=== PATIENT | female | born 1975 | race African-American/Black ===

== ENCOUNTER → 2020-08-24 | Outpatient (CLI) | payer OTHER ==
[2020-08-24 16:05] LABS: BASO % 1 % (0-3); EOS % 1 % (0-3); HEMATOCRIT 41.1 % (36.0-47.0); LYMPH % 36 % (24-48); MEAN CORPUSCULAR HEMOGLOBIN 32 pg (25-35); MEAN CORPUSCULAR HGB CONC 34 g/dL (31-37); MEAN CORPUSCULAR VOLUME 93 fL (79-100); MONO # 0.4 x10^3/uL (0.0-1.1); MONO % 7 % (0-9); NEUT # 3.1 x10^3/uL (1.8-7.7); NEUT % 55 % (31-73); PLATELET COUNT 287 x10^3/uL (140-400); RED BLOOD COUNT 4.42 x10^6/uL (3.50-5.40); RED CELL DISTRIBUTION WIDTH 14.2 % (11.5-14.5); WHITE BLOOD COUNT 5.6 x10^3/uL (4.0-11.0)
== END ==
LOC: LAB 15:44
PROVIDERS: ATTEND Obstetrics & Gynecology
DX: Z32.01 Encounter for pregnancy test, result positive (principal); O09.522 Supervision of elderly multigravida, second trimester; Z3A.00 Weeks of gestation of pregnancy not specified
CPT/HCPCS: 36415; 84702; 85025